=== PATIENT | female | born 1990 | race Caucasian/White ===

== ENCOUNTER 2020-12-17 14:29 | Emergency (ER) | payer MEDICAID, SELFPAY ==
[2020-12-17 14:30] VITALS: BP 120/92; PULSE 122; RESP 16; TEMP 36.8; O2SAT 100; BMI 17.4
--- NOTE | 2020-12-17 15:20 | EKG12_ITS ---
Test Reason : Blood Pressure : / mmHG Vent. Rate : 139 BPM Atrial Rate : 139 BPM P-R Int : 112 ms QRS Dur : 074 ms QT Int : 268 ms P-R-T Axes : 073 064 -80 degrees QTc Int : 407 ms Sinus tachycardia Nonspecific ST and T wave abnormality Abnormal ECG Confirmed by MEGHAN MILLER, JENNY ([id number]), publication editor VINH GARCIA ([id number]) on 12/18/2020 6:58:00 AM Referred By: CHRIS Confirmed By:JENNY CHRISTIANSON MD
--- NOTE | 2020-12-17 15:21 | EX.ED.DYSGE1 ---
HPI History of Present Illness Chief Complaint: General Illness Detail of Chief Complaint: Near syncope and racing heart Informant: patient Narrative Narrative: Patient presents to the emergency department with sudden onset feeling like she was in a pass out. Patient states that she was at work sitting when she started feeling very lightheaded and felt like her heart was racing and felt like he was in a pass out. Patient states that she had COVID-19 with symptoms that started 11 days ago. Patient states she is out of quarantine. She does still have a cough. She denies chest pain or shortness of breath. She denies vomiting or diarrhea. She is currently on her menstrual period. [facility] Medical History no medical history Home Medications NK 12/17/20 [History Last Taken Unknown] Allergy/AdvReac Type Severity Reaction Status Date / Time No Known Allergies Allergy Verified 12/17/20 14:32 Social History Smoking Status: Never smoker ROS ROS ED ROS Narrative Dizziness and near syncope Constitutional Constitutional ED: Reports systems reviewed and no addt'l complaints, except as documented; Denies body ache(s), change in weight or chills Eyes Eyes: Denies acute decrease in peripheral vision, change in vision, double vision or loss of vision ENT ENT ED: Reports none; Denies ear pain, lip swelling, loss taste/smell, neck pain, otalgia or sore throat Cardiovascular Cardiovascular: Reports none and racing heartbeat; Denies abdominal pain, chest pain with activity, leg edema, lightheadedness, palpitations, rapid heart rate or syncope Respiratory/Chest Respiratory/Chest: Reports none and cough; Denies change in mental status, dry cough, dyspnea, hemoptysis, shortness of breath at rest or shortness of breath with exertion Gastrointestinal Gastrointestinal: Reports none; Denies abdominal pain, change in stool character, diarrhea, hematemesis, hematochezia, melena, rectal bleeding or vomiting Genitourinary Genitourinary ED: Reports none; Denies abdominal discomfort, anuria, dysuria, genital pain or polyuria Musculoskeletal Musculoskeletal: Reports none; Denies arthralgias, back pain, difficulty walking, extremity pain, muscle weakness or myalgias Integumentary Reports none; Denies abscess or rash Neurologic Neurologic: Reports none; Denies abnormal gait, confusion, focal weakness, frequent falls, headache(s), loss of vision, numbness, paresthesias, radicular pain, vertigo or weakness Psychiatric Psychiatric: Reports systems reviewed and no addt'l complaints, except as documented and none; Denies behavioral changes, confusion, difficulty concentrating, hallucinations, suicidal ideation, tactile hallucinations or visual hallucinations Endocrine Endocrinology: Denies none, cold intolerance, excessive sweating, fatigue or heat intolerance Hematologic/Lymphatic Hematologic/Lymphatic: Reports none; Denies anemia, easy bleeding or easy bruising Allergic/Immunologic Allergic/Immunologic ED: Denies as per HPI, none, lip swelling, mouth swelling, throat swelling, tongue swelling or hives EXAM Physical Exam Const Vital Signs: 12/17/20 14:30 12/17/20 15:19 Temperature 98.3 F Temperature Source Temporal Pulse Rate 122 H Respiratory Rate 16 Respiratory Effort Normal Non-Labored Respiratory Pattern Normal Blood Pressure 120/92 H Blood Pressure Mean 101 Pulse Ox 100 Oxygen Delivery Method Room Air Positive well nourished and well developed General Appearance ED: well developed and NAD HEENT Reports TM's clear and moist mucous membranes normocephalic and atraumatic; Negative for trauma or tenderness Tympanic Membrane ED: Yes TM's clear Eyes PERRL and EOMs intact bilaterally General Eye ED: Negative for pale conjunctiva or scleral icterus Neck no lymphadenopathy, supple and no JVD General: Negative for tenderness Chest Wall inspection of chest normal and palpation of chest normal Chest: Negative for tenderness Resp normal respiratory effort and clear to auscultation bilaterally Effort and Inspection: Negative for respiratory distress or pain with movement Auscultation: Negative for rhonchi, wheezes or diminished lung sounds Cardio regular rate, regular rhythm, S1 normal heart sound, S2 normal heart sound and no murmurs Peripheral Pulses: pulses 2+ throughout GI normal to inspection, nondistended, normoactive bowel sounds, soft to palpation, non-tender, non-distended and no masses Back/Spine no CVA tenderness and no thoracic nor lumbar tenderness Extremity normal to inspection General Extremety ED: Negative for edema General Extremity: Negative for edema Neuro oriented x3, CN's II-XII intact bilaterally, no sensory deficits noted and gait normal Sensorium / Orientation: awake, alert, oriented to person, oriented to place and oriented to time Motor Exam: strength 5/5 throughout and strength abnormal Psych mental status grossly normal Skin no rashes or lesions noted and no wounds MDM MDM MDM Narrative Medical decision making narrative: IV line established on arrival patient given a liter massive fluid bolus. EKG obtained arrival shows sinus tachycardia with nonspecific ST changes. No old EKGs available for comparison. Chest x-ray was unremarkable. At this point etiology of her symptoms unclear but suspect likely related to Covid. Patient will be discharged to home and advised to push fluids. Patient to follow-up with primary care physician in 3 to 5 days. She is to return if worsening chest pain, increasing shortness of breath, or condition worsen anyway. Lab Data Attestation: I reviewed the patient's lab results. Labs: Laboratory Results - last 24 hr 12/17/20 12/17/20 12/17/20 15:30 15:30 15:30 WBC 9.8 RBC 4.06 L Hgb 13.2 Hct 38.9 MCV 95.8 MCH 32.5 H MCHC 33.9 RDW Std Deviation 41.8 RDW Coeff of Suzette 12.0 Plt Count 223 MPV 9.9 Immature Gran % (Auto) 0.400 Neut % (Auto) 85.0 H Lymph % (Auto) 8.8 L [place] % (Auto) 5.5 Eos % (Auto) 0.1 Baso % (Auto) 0.2 Absolute Neuts (auto) 8.3 H Absolute Lymphs (auto) 0.86 Nucleated RBC % 0 D-Dimer Quant (PE/DVT) 0.34 Sodium 141 Potassium 3.3 L Chloride 105 Carbon Dioxide 29.0 Anion Gap 7 BUN 6 L Creatinine 0.68 Estim Creat Clear Calc 83.04 Est GFR (MDRD) Af Amer 130 Est GFR (MDRD) Non-Af 108 BUN/Creatinine Ratio 8.8 L Glucose 149 H Calcium 8.8 Troponin I High Sens 5 Serum , Qual 12/17/20 15:30 WBC RBC Hgb Hct MCV MCH MCHC RDW Std Deviation RDW Coeff of Suzette Plt Count MPV Immature Gran % (Auto) Neut % (Auto) Lymph % (Auto) [place] % (Auto) Eos % (Auto) Baso % (Auto) Absolute Neuts (auto) Absolute Lymphs (auto) Nucleated RBC % D-Dimer Quant (PE/DVT) Sodium Potassium Chloride Carbon Dioxide Anion Gap BUN Creatinine Estim Creat Clear Calc Est GFR (MDRD) Af Amer Est GFR (MDRD) Non-Af BUN/Creatinine Ratio Glucose Calcium Troponin I High Sens Serum , Qual NEGATIVE Radiography Chest X-Ray - ED: 1 View Diagnostic Testin view chest x-ray obtained interpreted by myself as no acute disease process. Official report from radiology pending. EKG Initial EKG: Attestation: I personally reviewed and interpreted this EKG as follows: Comments: Sinus tachycardia with a ventricular rate of [address] changes Prior EKG tracings: not available for review Discharge Plan Triage Chief Complaint: General Illness ED Provider: John Bearden Dx/Rx/DC Orders Clinical Impression: Near syncope, COVID-19 Instructions: ED Near-Fainting, Uncertain Cause, Caring for Someone Who Has COVID-19 Prescriptions: No Action NK RF: 0 Primary Care Provider: Care Physician,No Primary Referrals: Maurice Munoz MD [STAFF PHYSICIAN] - 3-5 Days NOT,DEFINED [NON-STAFF] - Disposition Disposition: Home, Self Care
[2020-12-17] MEDS: 0.9% Normal Saline 1,000 ML 1000 ML IV (15:33)
[2020-12-17 15:59] LABS: Absolute Lymphocyte Count 0.86 X10^3/uL (0.83-4.51); Absolute Neutrophil Count 8.3 X10^3/uL (2.0-7.7); Basophil# 0.02 X10^3/uL; Basophil% 0.2 % (0-1); Eosinophil# 0.01 X10^3/uL; Eosinophils% 0.1 % (0-5); Hematocrit 38.9 % (37-47); Hemoglobin 13.2 g/dL (12.0-15.0); Lymphocyte # 0.86 X10^3/ul (0.83-4.51); Lymphocyte % 8.8 % (19-41); Mean Corp Hgb Conc 33.9 g/dL (32-36); Mean Corpuscular Hgb 32.5 pg (27.0-32.0); Mean Corpuscular Volume 95.8 fL (81-99); Mean Platelet Vol. 9.9 fl (6.2-12.0); Monocyte# 0.54 X10^3/uL; Monocyte% 5.5 % (0-10); NRBC Flagged by Analyzer 0 % (0-5); Neutrophil # 8.28 X10^3/uL (2.7-7.7); Platelet Count 223 K/mm3 (150-450); RBC Distribution Width SD 41.8 fl (35.1-43.9); Red Blood Count 4.06 M/mm3 (4.2-5.4); White Blood Count 9.8 K/mm3 (4.4-11.0)
[2020-12-17 16:04] LABS: D-Dimer Quantitative (DVT/PE) 0.34 FEU/ug/m (0.27-0.49)
[2020-12-17 16:06] LABS: Internal QC Validated? YES +Cl - CLEAR BKGD; Pregnancy, Serum, hCG Quali. NEGATIVE Negative
[2020-12-17 16:13] LABS: Anion Gap 7 (5-15); BUN 6 mg/dL (7-18); BUN/Creat Ratio 8.8 RATIO (10-20); Calcium,Total 8.8 mg/dL (8.5-10.1); Chloride 105 mmol/L (98-107); Creatinine, Serum 0.68 mg/dL (0.55-1.02); EST Glomerular Filtration Rate 108 mL/min (>60); Est Glom Filt Rate - Afr Amer 130 mL/min (>60); Estimated Creatinine Clearance 83.04 ml/min; Glucose 149 mg/dL (74-106); Potassium 3.3 mmol/L (3.5-5.1); Sodium Level 141 mmol/L (136-145); Troponin-I HS 5 pg/mL (3.0-54.0)
--- NOTE | 2020-12-17 16:24 | RAD_ITS ---
STUDY: X-RAY CHEST REASON FOR EXAM: Female, 30 years old. POSITIVE COVID, SYMPTOMS STARTED 11 DAYS AGO, OUT OF QUARANTINE. SUPPOSED TO GO BACK TO [employer] TODAY, BUT BECAME WEAK, DIZZY. TECHNIQUE: AP COMPARISON: None. FINDINGS: The lungs are clear and expanded. There is no demonstrated pleural abnormality. Normal size heart. Normal mediastinum and omer. Normal visualized pulmonary arteries. Normal visualized aortic arch and descending thoracic aorta. Normal visualized thoracic spine. Normal visualized ribs, clavicles, and shoulders. There is no demonstrated abnormality of the visualized soft tissue structures of the upper abdomen. RAD/Chest 1 View (Portable) IMPRESSION: Nonacute portable x-ray examination of the chest. Electronically Signed: Lisandro Reardon MD ([place]) at 16:40 EST , Service support ,
== END 2020-12-17 16:53 | disposition home or self-care (01) ==
PROVIDERS: Emergency Provider Emergency Medicine
DX: U07.1 COVID-19 (principal); R55 Syncope and collapse
CPT/HCPCS: 71045; 80048; 84484; 84703; 85025; 85379; 93005; 99284; J7030; A4216

== ENCOUNTER 2021-08-18 12:18 | Emergency (ER) | payer MEDICAID, SELFPAY ==
[2021-08-18 12:19] VITALS: BP 117/93; PULSE 95; RESP 16; TEMP 36.8; O2SAT 100; BMI 18.6
--- NOTE | 2021-08-18 12:31 | EDS_ITS ---
HPI History of Present Illness Chief Complaint: Dizziness Detail of Chief Complaint: Dizziness Informant: patient Narrative Narrative: Patient presents to the emergency department complaint of feeling dizzy since being at work today. Patient states she woke up feeling fine and then went to work and was at [employer] when she started feeling lightheaded and felt like she might pass out. Patient states there was no air conditioning in there. Patient has had similar episodes in the past is not as severe. She said in the air conditioning and felt somewhat better but still continues to feel somewhat dizzy and sweaty. Patient states at times she feels like she can a pass out and gets tunnel vision when these episodes happen. She denies any chest pain or shortness of breath. She denies recent illness. She is on oral contraceptive and does not think she is . Prior similar symptoms: Yes [facility] Medical History (Updated 08/18/21 @ 13:[address] John Bearden, DO) Migraine Home Medications cetirizine 10 mg tablet tab 08/18/21 [History Last Taken Unknown] propranolol 40 mg tablet tab 08/18/21 [History Last Taken Unknown] Allergy/AdvReac Type Severity Reaction Status Date / Time No Known Allergies Allergy Verified 08/18/21 12:19 Social History Smoking Status: Never smoker ROS ROS ED Review of Systems ROS Unobtainable: other Constitutional Constitutional ED: Reports lethargy; Denies chills, fever(s), sweats or weight loss Eyes Eyes: Denies blurry vision, change in vision or diplopia ENT ENT ED: Denies rhinorrhea or sore throat Cardiovascular Cardiovascular: Reports chest pain and racing heartbeat; Denies orthopnea Respiratory/Chest Respiratory/Chest: Reports dyspnea and dyspnea on exertion; Denies cough, orthopnea or sputum Gastrointestinal Gastrointestinal: Denies abdominal pain, diarrhea, nausea or vomiting Genitourinary Genitourinary ED: Denies dysuria, hematuria or urinary frequency Musculoskeletal Musculoskeletal: Denies arthralgias, back pain, myalgias or neck pain Integumentary Denies abscess, Abrasions or rash Neurologic Neurologic: Reports other Details: Dizziness ; Denies headache(s) or weakness Psychiatric Psychiatric: Denies anxiety, depression or suicidal thoughts Endocrine Endocrinology: Denies polydipsia, polyphagia or polyuria Hematologic/Lymphatic Hematologic/Lymphatic: Denies easy bleeding, easy bruising or lymphadenopathy Allergic/Immunologic Allergic/Immunologic ED: Denies mouth swelling, tongue swelling or urticaria EXAM Physical Exam Const Vital Signs: 08/18/21 12:19 08/18/21 12:49 08/18/21 12:50 Temperature 98.3 F Temperature Source Temporal Pulse Rate 95 Pulse Rate [Lying] 90 Pulse Rate [Sitting (for 1 minute prior to obtaining)] 90 Pulse Rate [Standing (for 1 minute prior to obtaining)] 87 Respiratory Rate 16 Respiratory Effort Normal Blood Pressure 117/93 H Blood Pressure [Lying] 98/68 Blood Pressure [Sitting (for 1 minute prior to obtaining)] 104/69 Blood Pressure [Standing (for 1 minute prior to obtaining)] 104/77 Blood Pressure Mean 101 Blood Pressure Mean [Lying] 78 Blood Pressure Mean [Sitting (for 1 minute prior to obtaining)] 80 Blood Pressure Mean [Standing (for 1 minute prior to obtaining)] 86 Pulse Ox 100 Oxygen Delivery Method Room Air Positive well nourished and well developed General Appearance ED: well developed and NAD HEENT Reports TM's clear and moist mucous membranes normocephalic and atraumatic; Negative for trauma or tenderness Tympanic Membrane ED: Yes TM's clear Eyes PERRL and EOMs intact bilaterally General Eye ED: Negative for pale conjunctiva or scleral icterus Neck no lymphadenopathy, supple and no JVD General: Negative for tenderness Chest Wall inspection of chest normal and palpation of chest normal Chest: Negative for tenderness Resp normal respiratory effort and clear to auscultation bilaterally Effort and Inspection: Negative for respiratory distress or pain with movement Auscultation: Negative for rhonchi, wheezes or diminished lung sounds Cardio regular rate, regular rhythm, S1 normal heart sound, S2 normal heart sound and no murmurs Peripheral Pulses: pulses 2+ throughout GI normal to inspection, nondistended, normoactive bowel sounds, soft to palpation, non-tender, non-distended and no masses Back/Spine no CVA tenderness and no thoracic nor lumbar tenderness Extremity normal to inspection General Extremety ED: Negative for edema General Extremity: Negative for edema Neuro oriented x3, CN's II-XII intact bilaterally, no sensory deficits noted and gait normal Sensorium / Orientation: awake, alert, oriented to person, oriented to place and oriented to time Motor Exam: strength 5/5 throughout and strength abnormal Psych mental status grossly normal Skin no rashes or lesions noted and no wounds MDM MDM MDM Narrative Medical decision making narrative: With segmental signs were negative. Chemistries unremarkable. hCG was negative. On Hallpike maneuver there is no evidence of nystagmus. At this point etiology of her dizziness is unclear. She was feeling improved but still complained of some lightheadedness. This point I recommended that she have somebody drive her home. Advised her to push fluids. She is to follow-up with her primary care physician within next 3 to 5 days. Lab Data Labs: Laboratory Results - last 24 hr 08/18/21 08/18/21 08/18/21 12:39 12:39 12:39 WBC 10.2 RBC 4.09 L Hgb 13.2 Hct 40.1 MCV 98.0 MCH 32.3 H MCHC 32.9 RDW Std Deviation 43.0 RDW Coeff of Suzette 11.9 Plt Count 244 MPV 10.1 Immature Gran % (Auto) 0.300 Neut % (Auto) 82.2 H Lymph % (Auto) 13.6 L [place] % (Auto) 3.4 Eos % (Auto) 0.3 Baso % (Auto) 0.2 Absolute Neuts (auto) 8.4 H Absolute Lymphs (auto) 1.38 Nucleated RBC % 0 Sodium 138 Potassium 3.8 Chloride 107 Carbon Dioxide 27.0 Anion Gap 4 L BUN 10 Creatinine 0.86 Estim Creat Clear Calc 69.86 Est GFR (MDRD) Af Amer 100 Est GFR (MDRD) Non-Af 83 BUN/Creatinine Ratio 11.7 Glucose 111 H Calcium 8.8 Serum , Qual NEGATIVE Discharge Plan Triage Chief Complaint: Dizziness Other Complaint: General Illness ED Provider: John Bearden Dx/Rx/DC Orders Clinical Impression: Dizziness Instructions: ED Dizziness, Uncertain Cause Prescriptions: No Action cetirizine 10 mg tablet Label Comments: TAKE ONE TABLET BY MOUTH DAILY NEEDED propranolol 40 mg tablet Label Comments: TAKE ONE TABLET BY MOUTH DAILY Primary Care Provider: Care Physician,No Primary Referrals: Town Doctor,Out of [NON-STAFF] - 3-5 Days Disposition Disposition: Home, Self Care
[2021-08-18] MEDS: 0.9% Normal Saline 1,000 ML 1000 ML IV (12:42)
[2021-08-18 12:49] LABS: Absolute Lymphocyte Count 1.38 X10^3/uL (0.83-4.51); Absolute Neutrophil Count 8.4 X10^3/uL (2.0-7.7); Basophil# 0.02 X10^3/uL; Basophil% 0.2 % (0-1); Eosinophil# 0.03 X10^3/uL; Eosinophils% 0.3 % (0-5); Hematocrit 40.1 % (37-47); Hemoglobin 13.2 g/dL (12.0-15.0); Lymphocyte # 1.38 X10^3/ul (0.83-4.51); Lymphocyte % 13.6 % (19-41); Mean Corp Hgb Conc 32.9 g/dL (32-36); Mean Corpuscular Hgb 32.3 pg (27.0-32.0); Mean Platelet Vol. 10.1 fl (6.2-12.0); Monocyte# 0.35 X10^3/uL; Monocyte% 3.4 % (0-10); NRBC Flagged by Analyzer 0 % (0-5); Neutrophil # 8.37 X10^3/uL (2.7-7.7); Neutrophil % 82.2 % (47-70); Platelet Count 244 K/mm3 (150-450); RBC Distribution Width CV 11.9 % (11.6-14.6); Red Blood Count 4.09 M/mm3 (4.2-5.4); White Blood Count 10.2 K/mm3 (4.4-11.0)
[2021-08-18 12:50] VITALS: BP 104/69; BP 104/77; BP 98/68; PULSE 87; PULSE 90
[2021-08-18 12:57] LABS: Internal QC Validated? YES +Cl - CLEAR BKGD; Pregnancy, Serum, hCG Quali. NEGATIVE Negative
--- NOTE | 2021-08-18 12:59 | CM.ED ---
SW Note SW met with patient as the chart indicated no PCP. Patient reports she goes to resident clinic at [place] called [facility]. No other social work issues or concerns voiced. Sruthi HOBBS
[2021-08-18 13:02] LABS: Anion Gap 4 (5-15); BUN 10 mg/dL (7-18); BUN/Creat Ratio 11.7 RATIO (10-20); Calcium,Total 8.8 mg/dL (8.5-10.1); Chloride 107 mmol/L (98-107); Creatinine, Serum 0.86 mg/dL (0.55-1.02); EST Glomerular Filtration Rate 83 mL/min (>60); Est Glom Filt Rate - Afr Amer 100 mL/min (>60); Estimated Creatinine Clearance 69.86 ml/min; Glucose 111 mg/dL (74-106); Potassium 3.8 mmol/L (3.5-5.1); Sodium Level 138 mmol/L (136-145)
[2021-08-18 13:14] VITALS: BP 105/74; PULSE 99; RESP 13; O2SAT 99
== END 2021-08-18 13:22 | disposition home or self-care (01) ==
PROVIDERS: Emergency Provider Emergency Medicine; Visit Provider Emergency Medicine
DX: R42 Dizziness and giddiness (principal)
CPT/HCPCS: 80048; 84703; 85025; 96360; 99285; J7030